=== PATIENT | male | born 1975 | race American Indian/Alaskan Native ===

== ENCOUNTER 2021-03-20 17:35 | Emergency (ER) | payer OTHER ==
[2021-03-20 18:13] LABS: Basophils % (Auto) 0.6 % (0.0-1.8); Eosinophils # (Auto) 0.1 K/mm3 (0.0-0.4); Eosinophils % (Auto) 1.4 % (0.0-4.3); Hemoglobin 14.4 gm/dl (11.8-15.2); Lymphocytes # (Auto) 1.3 K/mm3 (1.2-5.4); Lymphocytes % (Auto) 24.7 % (13.4-35.0); Mean Corpuscular HGB Conc 34 % (32-34); Mean Corpuscular Volume 95 fl (84-94); Monocytes # (Auto) 0.6 K/mm3 (0.0-0.8); Monocytes % (Auto) 11.3 % (0.0-7.3); Platelet Count 213 K/mm3 (140-440); Red Blood Count 4.44 M/mm3 (3.65-5.03); Red Cell Distribution Width 14.7 % (13.2-15.2)
[2021-03-20 18:27] LABS: Alanine Aminotransferase 149 units/L (7-56); Albumin 4.6 g/dL (3.9-5); BUN/Creatinine Ratio 11; Blood Urea Nitrogen 11 mg/dL (9-20); Calcium 9.9 mg/dL (8.4-10.2); Hemolysis Index 23
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
[2021-03-20 21:32] VITALS: BP 168/108
--- NOTE | 2021-03-21 13:36 | Electrocardiograph Report ---
[facility] Test Date: 2021-03-20 Test Time: 17:40:17 Pat Name: BARBY TELLEZ Department: Room: Gender: M [employer]: CARL : 1975 Requested By: MAURISIO LUNA Order Number: [id number] Reading MD: Guillermina Herndon Measurements Intervals Hillister Rate: 90 P: 74 ME: 132 QRS: -47 QRSD: 98 T: -25 QT: 363 QTc: 444 Interpretive Statements Sinus rhythm Ventricular premature complex Left anterior fascicular block Left ventricular hypertrophy Borderline T abnormalities, diffuse leads No previous ECG available for comparison Electronically Signed On 03-21-2021 13:36:31 EDT by Guillermina Herndon
== END 2021-03-20 21:35 | disposition home or self-care (01) ==
LOC: ED 17:35
DX: R07.89 Other chest pain (principal); Z79.899 Other long term (current) drug therapy; V87.7XXA Person injured in collision between other specified motor vehicles (traffic), initial encounter; W22.10XA Striking against or struck by unspecified automobile airbag, initial encounter; Y92.410 Unspecified street and highway as the place of occurrence of the external cause; Y93.89 Activity, other specified
CPT/HCPCS: 36415; 71046; 80053; 84484; 85025; 93005